=== PATIENT | female | born 1990 | race Caucasian/White ===

== ENCOUNTER 2018-07-07 08:36 | Emergency (ER) | payer SELFPAY ==
[~2018-07-07] VITALS: Ht 170.2 cm; Wt 49.9 kg
[2018-07-07 08:52] VITALS: BP 99/69
--- NOTE | 2018-07-07 09:13 | Emergency Room Report ---
History of Present Illness General Chief Complaint: Female Urogenital Problems Source: Patient Present Illness HPI Rosalinda is a very pleasant 27 yo female with hx of UTI who presents with dysuria , urgency and frequent urination. She recently completed 10 day course of antibiotic for UTI 3 weeks ago. Hematuria resolved. She is unable to recall name of antibiotics. No fever. No back pain. NO abd pain. Allergies: Coded Allergies: No Known Allergies (Unverified , 07/07/18) Patient History Past Medical History: see triage record Social History Narrative lives in [facility], returning home tomorrow Last Menstrual Period: on control Reviewed Nursing Documentation: PMH: Agreed; PSxH: Agreed Nursing Documentation-PMH Past Medical History: No Stated History Review of Systems Constitutional: Denies: fever, malaise Cardiovascular: Denies: chest pain Gastrointestinal: Denies: abdominal pain Genitourinary: Reports: dysuria, frequency, pain, urgency; Denies: discharge, hematuria, vag bleed/dc Physical Exam Vital Signs Date Time Temp Pulse Resp B/P (MAP) Pulse Ox O2 Delivery O2 Flow Rate FiO2 07/07/18 08:40 97.3 63 18 99/69 99 Room Air Sp02 EP Interpretation: reviewed, normal General Appearance: no apparent distress, alert, GCS 15, non-toxic Head: normocephalic, atraumatic Eyes: bilateral eye normal inspection, bilateral eye PERRL ENT: hearing grossly normal, normal pharynx, no angioedema, normal voice Neck: full range of motion, supple/symm/no masses Respiratory: chest non-tender, lungs clear, normal breath sounds, speaking full sentences Cardiovascular #1: normal inspection, normal peripheral pulses, regular rate, rhythm Gastrointestinal: normal bowel sounds, non tender, soft, non-distended, no guarding, no rebound Genitourinary: normal inspection, no CVA tenderness Musculoskeletal: back normal, gait/station normal, normal range of motion, non- tender, calf tenderness Neurologic: alert, oriented x3, responsive, motor strength/tone normal, sensory intact, speech normal Psychiatric: judgement/insight normal, memory normal, mood/affect normal, no suicidal/homicidal ideation Skin: normal color, no rash, warm/dry, well hydrated Medical Decision Making Diagnostic Impression: Primary Impression: UTI (urinary tract infection) ER Course Clinical presentation highly suggestive of UTI, urine culture sent. Patient will be in [facility] once results are available. rx: cephalexin and pyridium Last Vital Signs Date Time Temp Pulse Resp B/P (MAP) Pulse Ox O2 Delivery O2 Flow Rate FiO2 07/07/18 08:52 97.3 63 18 99/69 99 Room Air Disposition: HOME, SELF-CARE Scripts No Active Prescriptions or Reported Meds Referrals: NOT CHOSEN IPA/,REFERRING (PCP) Myrtle Iraheta MD Jul 07, 2018 09:13
[2018-07-07] MEDS ORDERED: PHENAZOPYRIDIN200 MG ORAL (09:15)
[2018-07-07] MEDS ORDERED: CEPHALEXIN500 M1 ORAL (09:15)
[2018-07-07 09:23] VITALS: BP 107/72
== END 2018-07-07 09:24 | disposition home or self-care (01) ==
LOC: EMR 08:56
DX: N39.0 Urinary tract infection, site not specified (principal)
CPT/HCPCS: 87086; 99283